=== PATIENT | male | born 1955 | race Caucasian/White ===

== ENCOUNTER 2018-12-25 09:07 | Outpatient (CLI) | payer OTHER, SELFPAY ==
[2018-12-25 09:13] VITALS: BP 130/67; PULSE 64; RESP 18; TEMP 36.5; O2SAT 100
[2018-12-25 09:45] VITALS: BP 163/71; PULSE 70; RESP 23; O2SAT 100
--- NOTE | 2018-12-25 09:50 | DI.RAD_ITS ---
SYMPTOMS/DIAGNOSIS: LUMBAR RADICULOPATHY, LUMBAR EPIDURAL STEROID INJECTION PAIN CLINIC: Fluoroscopy Time: 10.6 sec, 25.30 mGy. Images submitted from the pain clinic demonstrate positioning of a needle over the left paramedian position at the level of L 4 - 5 in conjunction with a lumbar epidural steroid injection. Please see Dr. Garcia's procedure report for further information.
[2018-12-25] MEDS: methylPREDNISolone ACETATE 40 MG/ML VIAL IJ (09:51)
[2018-12-25] MEDS: Omnipaque 240 MG/ML 50 ML BTL IJ (09:52)
--- NOTE | 2018-12-25 10:24 | PDOC.PAIN ---
Pain Clinic Procedure Note Current Active Problems Problem Status Onset Lumbar radiculitis Acute Lumbar Epidural Steroid Injection Procedure Note COMMENTS: I reviewed Ms. Benson's note from 12/02/18. I last completed this procedure on this patient on 12/12/17. He had about 10 months of relief. PANKAJ LOGAN has been referred to the [facility] for lumbar epidural steroid injection. The patient was greeted by the nurse who verified patients name and . Patient was then taken to the fluoroscopy suite. The patient was interviewed and the medial record reviewed. There were no medical, pharmacologic, radiographic, or other structural contraindications to attempting fluoroscopically guided lumbar epidural steroid injection. Risks and expected side effects as well as potential benefits of the procedure were reviewed and voiced concerns expressed. The patient consent form was signed and witnessed. Standard patient time-out procedure was performed. The patient was placed in the prone position on the fluoroscopy table and automated blood pressure cuff and pulse oximeter applied. The skin entry point for entering/approaching the epidural space at the left side of the L4-L5 interspace and marked. Following thorough chlorhexadine preparation of the skin and draping and 1% lidocaine infiltration of the skin entry point and subcutaneous tissues, a 18 gauge Touhy needle was placed under fluoroscopic guidance and with loss of resistance technique into the epidural space. Needle tip placement and depth were aided and confirmed by fluoroscopy. There was no paresthesia or return of blood or CSF through the needle. 1 cc's of Omnipaque 240 was injected with clear epidural spread confirmed with fluoroscopy. 80mg depomedrol was injected. There was not any unusual discomfort expressed by PNAKAJ LOGAN. Patient's vital signs were stable throughout the procedure and were as recorded in nursing records. Follow up plans and appointments were discussed with patient. Post procedure instruction was given as documented in nursing records and having met discharge criteria and was discharged from the [facility]. COMMENTS: If this procedure is found to be effective, it can be completed up to 3 times per 12 months.
== END 2018-12-26 12:41 | disposition home or self-care (01) ==
LOC: PC 09:07
PROVIDERS: PCP Internal Medicine; Visit Provider Preventive Medicine Occupational Medicine
DX: M54.16 Radiculopathy, lumbar region (principal)
CPT/HCPCS: 62323; 72100; J1030; Q9967

== ENCOUNTER 2021-04-18 12:08 | Outpatient (CLI) | payer OTHER, SELFPAY ==
--- NOTE | 2021-04-18 11:30 | DI.RAD_ITS ---
Exam(s) XR SHOULDER LT COMPLETE 2+V EXAM: XR SHOULDER LT COMPLETE 2+V CLINICAL HISTORY: left shoulder pain. TECHNIQUE: 2D digital imaging was performed. COMPARISON: No exams were available for comparison FINDINGS: BONES: No acute fracture is present. No bony destructive lesion is seen. Spurring at the distal cla vicle and acromion. Spurring at the inferior glenoid and greater tuberosity. JOINTS: No dislocation present. SOFT TISSUE: Normal. Small calcification projecting superiorly to the greater tuberosity could indic ate calcific tendinosis. IMPRESSION: Unre degenerative changes and question of calcific tendinosis. DATA REPOSITORY: RADIATION DOSE DELIVERED:
== END 2021-04-18 12:09 | disposition home or self-care (01) ==
LOC: DIORS 12:09
PROVIDERS: PCP Internal Medicine; Referring Provider Internal Medicine; Visit Provider Student in an Organized Health Care Education/Training Program
DX: M19.012 Primary osteoarthritis, left shoulder (principal)
CPT/HCPCS: 73030

== ENCOUNTER 2021-05-10 02:12 | Outpatient (CLI) | payer OTHER, SELFPAY ==
--- NOTE | 2021-05-10 07:45 | DI.MRI_ITS ---
Exam(s) MR UPPER JOINT LT WO EXAM: MR UPPER JOINT LT WO CLINICAL HISTORY: lt rotator cuff tear,[id number],bursitis,slap lesion,pain,m75.52,m75.22. TECHNIQUE: Multiplanar multisequence MRI was performed. COMPARISON: None. FINDINGS: The exam is limited by patient body habitus. BONES: There is no fracture or contusion pattern. There is spurring at the greater and lesser tubero sities. JOINTS: The acromioclavicular joint shows mild inferior spurring.. The glenohumeral joint is normal. TENDONS: Supraspinatus: There is some intermediate signal in the distal supraspinatus tendon as well as thick ening. A small calcification is seen within the supraspinatus tendon. The findings are consistent w ith tendinosis. There is a small area of high signal seen anteriorly in distally which could indicat e a superimposed partial tear. Infraspinatus: Unremarkable. Subscapularis: Unremarkable. Teres Minor: Unremarkable. Biceps and Surprise: Unremarkable. MUSCLES: Mild diffuse atrophy and fatty marbling. GLENOID LABRUM: Not ideally visualized but unremarkable on this noncontrast examination. SOFT TISSUES: Unremarkable. OTHER: Subacromial and subdeltoid bursae show a minimal amount of fluid.. IMPRESSION: Supraspinatus tendinosis with small partial tear distally. DATA REPOSITORY:
== END 2021-05-10 02:32 ==
PROVIDERS: PCP Internal Medicine; Visit Provider Student in an Organized Health Care Education/Training Program
DX: M75.22 Bicipital tendinitis, left shoulder (principal); M75.52 Bursitis of left shoulder; S43.432A Superior glenoid labrum lesion of left shoulder, initial encounter; S46.019A Strain of muscle(s) and tendon(s) of the rotator cuff of unspecified shoulder, initial encounter; X58.XXXA Exposure to other specified factors, initial encounter
CPT/HCPCS: 73221